=== PATIENT | male | born 1960 | race Caucasian/White ===

== ENCOUNTER 2021-08-25 19:56 | Emergency (ER) | payer BC, SELFPAY ==
[2021-08-25] VITALS (15 sets, daily range): BP systolic 151–190; BP diastolic 77–100; PULSE 75–86; RESP 20–220; TEMP 36.8; O2SAT 95–99
--- NOTE | ~2021-08-25 | CT_ITS ---
EXAMINATION: CT abdomen pelvis w con INDICATION: Left lower quadrant pain TECHNIQUE: Computed tomographic images of the abdomen and pelvis were obtained after the administrati on of 100 cc of Omnipaque 350 intravenous contrast. The dose-length product (DLP) was 1566.86 mGy-cm. Automated exposure control and iterative reconstruction technique were employed. COMPARISON: 02/22/2012 FINDINGS: Minimal dependent atelectasis is present in the lung bases. The heart size is normal. The l iver, spleen, pancreas, gallbladder, and adrenal glands are normal. There is a 3 mm stone in the dist al left ureter near the ureterovesicular junction. There are peripelvic cysts of the kidneys. There i s a 3 mm nonobstructing stone of the right kidney. No pathologically enlarged abdominal or pelvic lym ph nodes are identified. There is no free intraperitoneal gas or evidence of bowel obstruction. Colon ic diverticulosis is present without evidence of diverticulitis. There are fat-containing umbilical a nd right inguinal hernias. There is moderate lumbar spondylosis. IMPRESSION: 1. 3 mm stone in the distal left ureter near the ureterovesicular junction. 2. Bilateral nephrolithiasis. Reviewed, dictated and finalized at location F.
[2021-08-25] MEDS: MORPHINE SULFATE (*CRX) 4 MG/ML INJ IV PUSH (20:29)
[2021-08-25] MEDS: SODIUM CHLORIDE 0.9% IV 1,000 ML 999 ML IV CONT (20:29)
[2021-08-25 20:34] LABS: Basophils Percent Auto 0.3 % (0.2-1.2); Eosinophils Absolute Auto 0.1 K/mm3 (0-0.3); Eosinophils Percent Auto 1.1 % (0-4.4); Hematocrit 45.1 % (42.0-52.0); Hemoglobin 14.8 g/dL (14.0-18.0); Immature Granulocyte Absolute 0.05 K/mm3 (0.00-0.031); Immature Granulocyte Percent A 0.4 % (0-0.5); Lymphocytes Percent Auto 18.7 % (18.3-44.2); Mean Corpuscular HGB Conc 32.8 g/dl (32-36); Mean Corpuscular Hemoglobin 29.4 pg (26-34); Mean Corpuscular Volume 89.5 fl (80-100); Mean Platelet Volume 9.2 fl (7.4-10.4); Monocytes Absolute Auto 0.8 K/mm3 (0.1-0.6); Monocytes Percent Auto 6.5 % (2.6-8.5); Neutrophils Absolute Auto 9.4 K/mm3 (1.3-6.7); Platelet Count Result 323 k/mm3 (150-375); Red Blood Count 5.04 M/mm3 (4.6-6.20); Red Cell Distribution Width 13.9 % (11.5-14.5); White Blood Count 12.9 K/mm3 (4.5-10.0)
[2021-08-25 20:39] LABS: Add Urine Microscopic? YES; Appearance Urine Clear (Clear); Bilirubin Urine Negative (Negative); Blood Urine 3+ (Negative); Color Urine Yellow (Yellow); Glucose Urine UA Negative (Negative); Ketones Urine Negative (Negative); Leukocyte Esterase Ur Negative LEU/UL (Negative); Mucus Urine Rare /lpf; Nitrate Urine Negative (Negative); Protein Urine Negative (Negative); RBC Urine 21-50 /hpf (0-2); Specific Grav Ur 1.016 (1.001-1.035); Squamous Epithelial Cell Urine Rare /hpf (Few); Urobilinogen Urine Negative mg/dL (<2.0); WBC Urine 0-3 /hpf
[2021-08-25 20:44] LABS: Anion Gap 6 mmol/L (8-16); Blood Urea Nitrogen 18 mg/dL (9-20); Carbon Dioxide 30 mmol/L (22-30); Chloride 101 mmol/L (98-107); Estimated CRCL calculation 136 ml/min; Estimated Glomerular Filt Rate > 60; Glucose 115 mg/dL (65-110); Potassium 3.7 mmol/L (3.4-5.0); Sodium 137 mmol/L (137-145)
--- NOTE | 2021-08-25 20:52 | ED.ABDPAIN ---
HPI - Abdominal Pain General Chief Complaint: Abdominal Pain Stated Complaint: Abd pain Time Seen by Provider: 08/25/21 20:09 History of Present Illness HPI narrative: Patient is a 60-year-old male who presents ER with left lower quadrant abdominal pain. Sudden onset this morning. Persisted throughout today. Has waves of pain and has cramping that makes him feel like he needs to use restroom. He had 1 episode of diarrhea but has not been able to go to the bathroom since then. No fevers chills or sweats. No known sick contacts. No alleviating factors. Related Data Allergies Allergy/AdvReac Type Severity Reaction Status Date / Time levofloxacin Allergy Intermediate unk Verified 02/28/21 10:48 albuterol Allergy Unknown Unknown Verified 02/28/21 10:48 phenylephrine Allergy Unknown Unknown Verified 02/28/21 10:48 Review of Systems Review of Systems: All systems reviewed & are unremarkable except as noted in HPI and below Constitutional: Constitutional: Denies chills, Denies fever(s) and Denies weakness ENT: Denies nasal congestion and Denies sore throat Cardiovascular: Cardiovascular: Denies chest pain, Denies rapid heart rate and Denies radiating jaw, neck or arm pain Gastrointestinal: Gastrointestinal: Reports abdominal pain, Reports diarrhea, Reports nausea and Denies vomiting Genitourinary: Genitourinary: Denies hematuria, Denies dysuria and Denies urinary frequency PMFSH Past Medical History Medical History (Updated 08/25/21 @ 21:43 by Kyle Dillard MD) Anxiety and depression Elevated glucose Essential hypertension Morbid (severe) obesity due to excess calories Surgical History Surgical History (Updated 08/25/21 @ 20:54 by Kyle Dillard MD) History of tonsillectomy Family History Family History Grandparent Hypertension Family history of heart disease in male family member before age 55 Mother Hypotension Father Pacemaker Sibling COVID-19 Sibling , Agent [place] Social History Social History Second hand tobacco smoke exposure: No Alcohol intake: current Substance use: never Substance use type: does not use 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 HEAD: Normocephalic, atraumatic. CHEST: Clear to auscultation. No respiratory distress. HEART: Regular rate and rhythm. Normal peripheral pulses. ABDOMEN: Soft, nontender, nondistended. EXTREMITIES: Normal range of motion. No edema. SKIN: Warm, dry, no rash. NEURO: Alert and oriented x3. PSYCH: Normal mood and affect. Course Course Emergency Course: Patient informed of results. Pain improving. Eventually discharged home on supportive Vital Signs Vital signs: Vital Signs Temperature 98.2 F 08/25/21 20:00 Pulse Rate 86 08/25/21 20:00 Respiratory Rate 220 H 08/25/21 20:00 Blood Pressure 190/100 H 08/25/21 20:00 Pulse Oximetry 98 08/25/21 20:00 Temperature 98.2 F 08/25/21 20:00 Pulse Rate 75 08/25/21 20:46 Respiratory Rate 20 08/25/21 20:46 Blood Pressure 165/80 H 08/25/21 21:31 Pulse Oximetry 95 08/25/21 21:31 MDM - Abdominal Pain Lab Data Result diagrams: 08/25/21 20:27 08/25/21 20:27 Labs: Lab Results 08/25/21 08/25/21 08/25/21 Range/Units 20:27 20:27 20:27 WBC 12.9 H (4.5-10.0) K/mm3 RBC 5.04 (4.6-6.20) M/mm3 Hgb 14.8 (14.0-18.0) g/dL Hct 45.1 (42.0-52.0) % MCV 89.5 (80-100) fl MCH 29.4 (26-34) pg MCHC 32.8 (32-36) g/dl RDW 13.9 (11.5-14.5) % Plt Count 323 (150-375) k/mm3 MPV 9.2 (7.4-10.4) fl Immature Gran % (Auto) 0.4 (0-0.5) % Neut % (Auto) 73.0 (
[2021-08-25] MEDS: KETOROLAC 30 MG/ML VIAL (*BKC) IV PUSH (21:35)
== END 2021-08-25 22:05 | disposition home or self-care (01) ==
PROVIDERS: Emergency Provider Emergency Medicine; PCP Family Medicine
DX: N20.2 Calculus of kidney with calculus of ureter (principal); I10 Essential (primary) hypertension; E66.01 Morbid (severe) obesity due to excess calories; Z68.43 Body mass index [BMI] 50.0-59.9, adult
CPT/HCPCS: 36415; 74177; 80048; 81001; 85025; 96361; 96374; 96375; 99284; J1885; J2270; J7030; Q9967

== ENCOUNTER 2023-04-27 11:01 | Outpatient (CLI) | payer OTHER, SELFPAY ==
--- NOTE | ~2023-04-27 | XR_ITS ---
EXAMINATION: XR chest 2V DATE: 04/27/2023 11:16 INDICATION: Subacute cough TECHNIQUE: PA and lateral views of the chest are obtained. COMPARISON: 01/07/2019 FINDINGS: There are mild diffuse interstitial and airspace opacities. No pleural effusion or pneumoth orax. The cardiomediastinal silhouette is normal. There is mild thoracic spondylosis. IMPRESSION: 1. Diffuse lung disease, consistent with pneumonia and/or pulmonary edema. Reviewed, dictated and finalized at location B. RIOR COURT JUSTICE
--- NOTE | 2023-04-27 11:03 | ECG_ITS ---
Measurements Intervals [place] Rate: 80 P: 55 [place]: 190 QRS: -9 QRSD: 97 T: 52 QT: 369 QTc: 426 Interpretive Statements SINUS RHYTHM LEFT VENTRICULAR HYPERTROPHY AND ST-T CHANGE [VOLTAGE CRITERIA PLUS ST/T ABNORMALITY] INFERIOR MYOCARDIAL INFARCTION , PROBABLY OLD [40+ ms Q WAVE AND/OR ST/T ABNORMALITY IN II/aVF] COMPARED TO ECG 01/07/2019 19:58:02 SINUS RHYTHM NOW PRESENT Electronically Signed On 04-27-2023 16:38:27 DAIRY ASSOCIATE by Janes Bhatt M.D.
== END 2023-04-27 11:02 | disposition home or self-care (01) ==
LOC: ANHIMG 11:03
PROVIDERS: PCP Family Medicine; Visit Provider Physician Assistant
DX: R07.89 Other chest pain (principal); R05.2 Subacute cough; R94.31 Abnormal electrocardiogram [ECG] [EKG]
CPT/HCPCS: 71046; 93005

== ENCOUNTER 2023-05-10 18:50 | Observation (INO) | payer OTHER, SELFPAY ==
--- NOTE | ~2023-05-10 | XR_ITS ---
EXAMINATION: XR chest 2V DATE: 05/10/2023 19:42 INDICATION: Cough and left-sided rib pain TECHNIQUE: PA and lateral views of the chest were obtained. COMPARISON: Chest radiograph dated 04/27/2023 FINDINGS: There is mild bronchial wall thickening in the right perihilar region. No focal airspace opacities, p leural effusion or pneumothorax. Heart size is normal. Tortuous thoracic aorta. Moderate thoracic spo ndylosis. IMPRESSION: 1. Mild right perihilar bronchial wall thickening consistent with bronchitis without focal airspace o pacities to suggest pneumonia Reviewed, dictated and finalized at location A. ASOUND TECHNOLOGIST IMPRESSION: 1. Mild right perihilar bronchial wall thickening consistent with bronchitis wi thout focal airspace opacities to suggest pneumonia
--- NOTE | ~2023-05-10 | XR_ITS ---
EXAMINATION: XR lumbar spine 2-3V DATE: 05/10/2023 21:45 INDICATION: Chronic back pain TECHNIQUE: Anteroposterior and lateral views of the lumbar spine, and cone-down lateral view of the l umbosacral junction were obtained. COMPARISON: CT abdomen and pelvis dated 08/25/2021 FINDINGS: 3 mm anterolisthesis L4 on L5. Unchanged mild posterior subluxation at the sacrococcygeal junction. C hronic mild anterior wedging at T12 and L1. Mild disc height loss at L1-L2, L3-L4 and L4-L5. Severe b ilateral facet osteoarthritis at L4-L5. Additional polyarticular osteoarthritis, mild at the right hi p and sacroiliac joint and mild to moderate at the left hip and sacroiliac joint. IMPRESSION: 1. Mild lumbar spondylosis. Reviewed, dictated and finalized at location A. TATION DIRECTOR IMPRESSION: 1. Mild lumbar spondylosis.
[2023-05-10 19:00] VITALS: BP 153/84; PULSE 76; RESP 16; TEMP 36.7; O2SAT 99
[2023-05-10 21:18] LABS: Influenza A QL RT-PCR Negative (Negative); Influenza B QL RT-PCR Negative (Negative); RSV RNA, RT-PCR Negative (Negative); SARS-CoV-2 RNA PCR Negative (Negative)
[2023-05-11] VITALS (10 sets, daily range): BP systolic 130–165; BP diastolic 82–100; PULSE 66–92; RESP 15–16; TEMP 36.5; O2SAT 94–100; BMI 53.3
--- NOTE | 2023-05-11 | ECG_ITS ---
Measurements Intervals [place] Rate: 78 P: 46 [place]: 192 QRS: -3 QRSD: 98 T: 64 QT: 388 QTc: 444 Interpretive Statements SINUS RHYTHM INTRAVENTRICULAR CONDUCTION DELAY LEFT VENTRICULAR HYPERTROPHY AND ST-T CHANGE BORDERLINE ST-T WAVE ABNORMALITY- ANTEROLATERAL LEADS BORDERLINE ECG BASELINE ARTIFACT- I, III, AVR, AVL, AVF, V2-V6 COMPARED TO ECG 04/27/2023 11:52:56 NO SIGNIFICANT CHANGES Electronically Signed On 05-11-2023 6:39:44 JEWEL HOLE CORNERER by Uriel Adams D.O.
--- NOTE | 2023-05-11 00:02 | ED.CHESTPAIN ---
HPI - Chest Pain General Chief Complaint: Back Pain/Injury Stated Complaint: back pain Time Seen by Provider: 05/10/23 23:50 Source: patient Mode of arrival: ambulatory Limitations: no limitations History of Present Illness HPI narrative: This is a 62 year old male that presents to the ER for left sided chest pain. Reports it is dull/achy in nature. No known alleviating or exacerbating factors. Started this afternoon. Has been constant since. Reports he was recently treated for pneumonia. Reports some shortness of breath. Denies fever, or lower extremity edema. Related Data Allergies Allergy/AdvReac Type Severity Reaction Status Date / Time levofloxacin Allergy Intermediate unk Verified 05/10/23 18:51 albuterol Allergy Unknown Unknown Verified 05/10/23 18:51 phenylephrine Allergy Unknown Unknown Verified 05/10/23 18:51 Review of Systems Review of Systems: CONSTITUTIONAL: Denies fever CARDIOVASCULAR: Reports chest pain. Denies edema. RESPIRATORY: Reports dyspnea. All systems reviewed & are unremarkable except as noted in HPI and below PMFSH Past Medical History Medical History Anxiety and depression BMI 50.0-59.9, adult COVID-19 Elevated glucose Essential hypertension Morbid (severe) obesity due to excess calories Surgical History Surgical History History of tonsillectomy Family History Family History Grandparent Hypertension Family history of heart disease in male family member before age 55 Mother Hypotension Father Pacemaker Sibling COVID-19 Sibling , Agent [place] Social History Social History Smoking status: Never smoker Second hand tobacco smoke exposure: Yes Alcohol intake: current Substance use: never Substance use type: does not use Lack of Transportation: No Lack of Food: Never True Current Housing: I Have Housing Concerned About Future Housing: No Difficulty Paying Gas/Electric Bills: No Difficulty Paying for Meds: No Currently Unemployed: No Education: Master's Degree or Higher Difficulty w/ Childcare or Family Care: No Living arrangements: alone Occupation/Education: occupation 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 HEAD: Normocephalic, atraumatic. EYES: EOMI. NECK: No JVD CHEST: Clear to auscultation. No respiratory distress. No wheezes rales or rhonchi HEART: Regular rate and rhythm. No murmur heard. Normal peripheral pulses. EXTREMITIES: Normal range of motion. No edema. SKIN: Warm, dry, no rash. NEURO: No focal deficits. Alert and oriented x3. PSYCH: Normal mood and affect Course Course Emergency Course: Patient updated on his workup and recommendation for admission Consultations Consultation #1: Spoke with hospitalist about patient and workup who accepts admission Date: 05/11/23 Vital Signs Vital signs: Vital Signs Temperature 98.1 F 05/10/23 19:00 Pulse Rate 76 05/10/23 19:00 Respiratory Rate 16 05/10/23 19:00 Blood Pressure 153/84 H 05/10/23 19:00 Pulse Oximetry 99 05/10/23 19:00 Oxygen Delivery Room Air 05/10/23 19:00 Temperature 98.1 F 05/10/23 19:00 Pulse Rate 71 05/11/23 00:42 Respiratory Rate 16 05/11/23 00:42 Blood Pressure 146/82 H 05/11/23 00:42 Pulse Oximetry 100 05/11/23 00:42 Oxygen Delivery Room Air 05/10/23 19:00 MDM - Chest Pain MDM Narrative Medical decision making narrative: Patient presents to the emergency department for an episode of chest pain this afternoon. His vitals are stable. Pain was relieved with a dose of morph
[2023-05-11] MEDS: ASPIRIN 81 MG CHEWABLE TABLET 324 MG PO (00:09)
[2023-05-11] MEDS: MORPHINE SULFATE (*CRX) 4 MG/ML INJ IV PUSH (00:13)
[2023-05-11] MEDS: ONDANSETRON INJ 4 MG/2 ML VIAL IV PUSH (00:14)
[2023-05-11 00:41] LABS: D Dimer 0.37 ug/mL (<0.48)
[2023-05-11 00:42] LABS: Basophils Percent Auto 0.3 % (0.2-1.2); Eosinophils Absolute Auto 0.2 K/mm3 (0-0.3); Eosinophils Percent Auto 1.4 % (0-4.4); Hematocrit 43.8 % (42.0-52.0); Hemoglobin 14.3 g/dL (14.0-18.0); Immature Granulocyte Absolute 0.04 K/mm3 (0.00-0.031); Immature Granulocyte Percent A 0.3 % (0-0.5); Lymphocytes Absolute Auto 3.33 K/mm3 (0.9-3.2); Lymphocytes Percent Auto 28.7 % (18.3-44.2); Mean Corpuscular HGB Conc 32.6 g/dl (32-36); Mean Corpuscular Hemoglobin 29.7 pg (26-34); Mean Corpuscular Volume 90.9 fl (80-100); Mean Platelet Volume 9.8 fl (7.4-10.4); Monocytes Absolute Auto 0.7 K/mm3 (0.1-0.6); Monocytes Percent Auto 6.2 % (2.6-8.5); Neutrophils Absolute Auto 7.3 K/mm3 (1.3-6.7); Neutrophils Percent Auto 63.1 % (45.5-73.1); Platelet Count Result 320 k/mm3 (150-375); Red Blood Count 4.82 M/mm3 (4.6-6.20); Red Cell Distribution Width 13.9 % (11.5-14.5); White Blood Count 11.6 K/mm3 (4.5-10.0)
[2023-05-11 00:47] LABS: Partial Thromboplastin Time 31.8 SECONDS (22.3-36.8); Prothrombin Time 13.5 Seconds (11.1-14.7)
[2023-05-11 00:51] LABS: Alanine Aminotransferase 29 U/L (6-50); Albumin Level 3.9 g/dL (3.5-5.1); Alkaline Phosphatase 55 U/L (38-126); Anion Gap 7 mmol/L (8-16); Aspartate Amino Transferase 32 U/L (17-59); Bilirubin,Total 1.1 mg/dL (0.2-1.3); Blood Urea Nitrogen 13 mg/dL (9-20); Calcium 8.9 mg/dL (8.4-10.2); Carbon Dioxide 30 mmol/L (22-30); Chloride 101 mmol/L (98-107); Estimated CRCL calculation 173 ml/min; Estimated Glomerular Filt Rate > 60; Glucose 97 mg/dL (65-110); Lipase 54 U/L (23-300); Potassium 3.4 mmol/L (3.4-5.0); Sodium 138 mmol/L (137-145)
[2023-05-11 01:03] LABS: Troponin I 0.028 ng/mL (0.000-0.034)
--- NOTE | 2023-05-11 02:50 | PM.IMHP ---
H&P: HPI History of Present Illness Date/Time: 05/11/23 02:50 Chief Complaint: Chest pain Narrative: This is a 62-year-old male with past medical history significant for morbid obesity, hypertension, anxiety and depression. Patient presents to the emergency room due to left-sided chest pain nonradiating a caring on and off for the last 2 weeks or so patient has been having upper respiratory symptoms since early March has had productive cough, has completed 2 courses of Z-Arturo and Solu pack in the outpatient setting but is still having persist cough. Patient denies any nausea, vomiting, palpitations, lightheadedness, no fevers, no rigors, no chills. Preliminary workup has been significant for chest x-ray with infiltrate. Patient tested negative for influenza type A influenza type B COVID and RSV. EXAMINATION: XR chest 2V DATE: 05/10/2023 19:42 INDICATION: Cough and left-sided rib pain TECHNIQUE: PA and lateral views of the chest were obtained. COMPARISON: Chest radiograph dated 04/27/2023 FINDINGS: There is mild bronchial wall thickening in the right perihilar region. No focal airspace opacities, pleural effusion or pneumothorax. Heart size is normal. Tortuous thoracic aorta. Moderate thoracic spondylosis. IMPRESSION: 1. Mild right perihilar bronchial wall thickening consistent with bronchitis without focal airspace opacities to suggest pneumonia Review of Systems Review of Systems: Chest pain, productive cough. Constitutional: Constitutional: Denies chills, Denies fatigue, Denies fever(s), Denies malaise, Denies night sweats and Denies poor appetite Eyes: Eyes: Denies change in vision ENT: Denies dysphagia and Denies odynophagia Cardiovascular: Cardiovascular: Reports chest pain, Denies syncope, Denies rapid heart rate, Reports pedal edema, Denies lightheadedness, Denies radiating jaw, neck or arm pain, Denies palpitations and Reports dyspnea Respiratory: Respiratory: Reports cough, Reports excessive phlegm production and Denies pain on inspiration Gastrointestinal: Gastrointestinal: Denies abdominal pain, Denies dyspepsia, Denies heartburn, Denies diarrhea, Denies nausea and Denies vomiting Genitourinary: Genitourinary: Denies dysuria Musculoskeletal: Musculoskeletal: Denies arthralgias Integumentary/Breasts: Skin/Breast: Denies rash Neurologic: Denies focal weakness and Denies Sensory deficit (Neuro) Psychiatric: Psychiatric: Reports no additional psychiatric complaints and Reports as per HPI Endocrine: Endocrine: Denies cold intolerance, Denies fatigue, Denies flushing, Denies heat intolerance, Denies polyphagia, Denies polydipsia and Denies palpitations Hematologic/Lymphatic: Hematologic/Lymphatic: Reports no additional hematologic/lymphatic complaints and Reports as per HPI Allergic/Immunologic: Allergic/Immunologic: Reports no additional allergic/immunologic complaints and Reports as per HPI PMFSH Past Medical History Medical History Anxiety and depression BMI 50.0-59.9, adult COVID-19 Elevated glucose Essential hypertension Morbid (severe) obesity due to excess calories Surgical History Surgical History History of tonsillectomy Family History Family History Grandparent Hypertension Family history of heart disease in male family member before age 55 Mother Hypotension Father Pacemaker Sibling COVID-19 Sibling , Agent [place] Social History Social History Smoking status: Never smoker Second hand tobacco smoke exposure: Yes Alcohol intake: current Substance use: never Substance use type: does not use Lack of Transportation: No Lack of Food: Never True Current Housing: I Have Ho
--- NOTE | 2023-05-11 03:47 | ECG_ITS ---
Measurements Intervals [place] Rate: 70 P: 45 [place]: 196 QRS: -7 QRSD: 114 T: 85 QT: 430 QTc: 466 Interpretive Statements SINUS RHYTHM VENTRICULAR PREMATURE COMPLEX INTRAVENTRICULAR CONDUCTION DELAY LEFT VENTRICULAR HYPERTROPHY AND ST-T CHANGE CONSIDER INFERIOR INFARCT, AGE INDETERMINATE BORDERLINE ST-T WAVE ABNORMALITY- ANTEROLATERAL LEADS BASELINE ARTIFACT- I, III, AVR, AVL, AVF ABNORMAL ECG COMPARED TO ECG 05/11/2023 00:14:34 NO SIGNIFICANT CHANGES Electronically Signed On 05-11-2023 6:45:52 TRANSFER IRON OPERATOR by Uriel Adams D.O.
[2023-05-11 04:14] LABS: Troponin I 0.028 ng/mL (0.000-0.034)
--- NOTE | 2023-05-11 05:56 | ECG_ITS ---
Measurements Intervals [place] Rate: 71 P: 37 [place]: 204 QRS: -10 QRSD: 100 T: 52 QT: 390 QTc: 425 Interpretive Statements SINUS RHYTHM VENTRICULAR PREMATURE COMPLEX LEFT VENTRICULAR HYPERTROPHY AND ST-T CHANGE CONSIDER INFERIOR INFARCT, AGE INDETERMINATE BORDERLINE ST-T WAVE ABNORMALITY- ANTEROLATERAL LEADS BASELINE ARTIFACT- I, III, AVR, AVL, AVF ABNORMAL ECG COMPARED TO ECG 05/11/2023 03:53:32 NO SIGNIFICANT CHANGES Electronically Signed On 05-11-2023 6:49:18 BAIT MAN by Uriel Adams D.O.
[2023-05-11 06:20] LABS: Troponin I 0.024 ng/mL (0.000-0.034)
[2023-05-11] MEDS: cefTRIAXone 2 GM/NS 100 ML 2 GM/100 ML BAG IVPB (06:24)
[2023-05-11] MEDS: AZITHROMYCIN 500 MG/NS 250 ML 500 MG/250 ML BAG 250 MG IVPB (06:47)
--- NOTE | 2023-05-11 09:34 | ADMGEN ---
This patient, Jose Zuñiga, was admitted to Intensive Care Unit-4 at 0903. Patient/family oriented to hospital policies and general routines including ID bracelet, bed and alarms, visiting hours, pain management, procedures, bathroom and other care routines, personal items, smoking policy, room service/diet, and visiting hours. Information on how to activate the Rapid Response Team has been discussed. Patient/Family are encouraged to report perceived risks to care and to ask questions if they do not understand what they are told or what they should do.
--- NOTE | 2023-05-11 09:35 | ADMGEN ---
This patient, Jose Zuñiga, was admitted to Intensive Care Unit-4. Patient/family oriented to hospital policies and general routines including ID bracelet, bed and alarms, visiting hours, pain management, procedures, bathroom and other care routines, personal items, smoking policy, room service/diet, and visiting hours. Information on how to activate the Rapid Response Team has been discussed. Patient/Family are encouraged to report perceived risks to care and to ask questions if they do not understand what they are told or what they should do.
--- NOTE | 2023-05-11 09:43 | PM.CNCAR ---
Assessment and Plan Assessment and plan (1) Chest pain: Qualifiers: Chest pain type: unspecified Qualified Code(s): R07.9 - Chest pain, unspecified Code(s): R07.9 - Chest pain, unspecified Status: Acute Assessment and Plan: Atypical chest pain. He has been ruled out for ACS with three negative troponin levels and EKG with no ischemic changes. Most likely musculoskeletal in etiology. No recommendation for any further cardiac testing at this time. OK for discharge from the hospital from a cardiac perspective. (2) Acute bronchitis: Qualifiers: Bronchitis organism: unspecified organism Qualified Code(s): J20.9 - Acute bronchitis, unspecified Code(s): J20.9 - Acute bronchitis, unspecified Status: Acute Assessment and Plan: Continue abx, steroids, and inhaler per hospitalist (3) Morbid (severe) obesity due to excess calories: Code(s): E66.01 - Morbid (severe) obesity due to excess calories Status: Acute Assessment and Plan: Weight loss recommended History of Present Illness History of Present Illness Consult date/time: 05/11/23 09:43 Requesting physician: Savage Page MD Consult reason: chest pain Reason For Visit: Chest Pain Narrative: Cristian Zuñiga is a 62-year-old male with morbid obesity and hypertension. He presents to the hospital with a chief complaint of chest pain. He has been experiencing upper respiratory symptoms for a few weeks. He has had some left sided chest pain associated with this. He states the pain has been constant and mild, located on his left lateral chest wall. Because of ongoing pain, he made the decision to come to the hospital for evaluation. Workup has been significant for CXR showing perihilar bronchial wall thickening consistent with bronchitis. Cardiology is being asked to evaluate his chest pain. Currently, he is lying comfortably in bed with ongoing mild left sided chest pain. He does not have any other complaints. Review of Systems Review of Systems: All systems reviewed & are unremarkable except as noted in HPI and below PMFSH Past Medical History Medical History Anxiety and depression BMI 50.0-59.9, adult COVID-19 Elevated glucose Essential hypertension Morbid (severe) obesity due to excess calories Surgical History Surgical History History of tonsillectomy Family History Family History Grandparent Family history of heart disease in male family member before age 55 Hypertension Mother History of blood clots Hypotension Father Pacemaker Sibling COVID-19 History of blood clots Diabetes mellitus Sibling , Agent [place] Social History Social History Smoking status: Never smoker Second hand tobacco smoke exposure: Yes Alcohol intake: current Drinks per week: 2 Substance use: never Substance use type: does not use Do You Feel Safe in your Home?: Yes Lack of Transportation: No Lack of Food: Never True Current Housing: I Have Housing Concerned About Future Housing: No Difficulty Paying Gas/Electric Bills: No Difficulty Paying for Meds: No Currently Unemployed: No Education: Master's Degree or Higher Difficulty w/ Childcare or Family Care: No Living arrangements: alone Occupation/Education: occupation 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
[2023-05-11] MEDS: IPRATROPIUM 0.5 MG/ALBUTEROL SULFATE 2.5 MG AMPUL.NEB 3 ML INHALATION (10:02)
--- NOTE | 2023-05-11 10:52 | PM.DS ---
DS: Admitting Diagnosis Discharge Date 05/11/2023 Admitting Diagnosis Chest Pain Bronchitis Cough DS: Discharge Diagnosis Discharge Diagnosis (1) Chest pain: Qualifiers: Chest pain type: unspecified Qualified Code(s): R07.9 - Chest pain, unspecified Code(s): R07.9 - Chest pain, unspecified Status: Acute Assessment and Plan: Pt with three negative Troponins Stable VS ACS is ruled out. Cardiology consulted and they plan no further intervention or testing. Pt is stable for discharge from their standpoint. EKG without ischemic changes and telemetry is normal. Suspect Chest pain was most likely due to musculoskeletal strain. Keep upcoming appointment with Dr. Adams next week in Cardiology. (2) Acute bronchitis: Qualifiers: Bronchitis organism: unspecified organism Qualified Code(s): J20.9 - Acute bronchitis, unspecified Code(s): J20.9 - Acute bronchitis, unspecified Status: Acute Assessment and Plan: CXR performed in ER does not identify any acute PNA. There is mild right perihilar bronchial wall thickening that is consistent with Bronchitis. Pt was started on Azithromycin and Rocephin in ER. He has had two rounds of Azithromycin previously without any change in overall condition. Suspect this is mostly viral in nature, as there is no left shift on CBC COVID, Flu and RSV are negative. Pt without meeting SIRS/Sepsis criteria. He is stable for discharge to home. Will continue abx with Augmentin, although I am not altogether convinced that this is Bacterial and will also provide a steroid taper and symptomatic managment. Encouraged to continue inhaler at home Follow up with PCP. Plan Discharge to home DS: Summary Hospital Course Reason for hospitalization: Chest Pain Hospital Course: This 62 year old male pt with Hx of Obesity, HTN, Anxiety, and Depression presented to the ER last evening with C/O chest pain that pt reports to me is left sided and radiates to the side. It is made worse by deep inspiration and coughing. He has no symptoms of N/V/Diaphoresis. He was diagnosed with PNA at the end of March and has completed two courses of abx and some steroids as well. He has not gotten any better. He uses his Albuterol inhaler at home with some improvement in his overall condition. He was admitted to the hospital for a rule out of ACS and Cardiology was consulted. He has had three negative troponins and Cardiology has no further recommendations for testing at this time. He has an appointment coming up with Dr. Adams coming up. Pt is stable for discharge at this time. He will be discharged with continued treatment for Bronchitis and advisement for follow up. He is agreeable to this POC and verbalizes understanding. All questions answered to his satisfaction prior to discharge. Status at Discharge Cognitive/behavioral status at discharge: At Baseline Functional status at discharge: independent ambulation Overall status at discharge: patient is back to baseline Time Spent with Patient Time attestation: Total time spent providing and/or coordinating discharge services: Time spent: Greater than 30 minutes Specific discharge activities: Discharge activities and follow up Exam Const: General: comfortable and no acute distress Other: Morbidly obese lying supine in bed HENMT: Other: Grossly normal without any s/s of trauma. Normocephalic. Patent airway. Eyes: General: appearance normal, both eyes and all related structures Neck: Neck: supple Resp: Effort & Inspection: normal respiratory effort Auscultation: wheezes (Few scattered inspiratory) Cardio: Rate: regular rate Rhythm: regular rhythm Heart sounds: no gallops, no murmurs and no rubs GI: Inspection: non-distended GI Palp: Yes Soft to palpation Auscultation: normal bowel sounds Skin: General skin exam: normal color and no rashes or lesions noted Neuro: General: gait normal
== END 2023-05-11 12:00 | disposition home or self-care (01) ==
LOC: ANHED 05-11 02:54 → ANHIMU 05-11 06:33 → ANHICU 05-11 11:19 → ANHIMU 05-14 10:01 → ANHICU 05-14 10:02
PROVIDERS: Student in an Organized Health Care Education/Training Program; Admitting Provider Internal Medicine; Emergency Provider Physician Assistant; PCP Family Medicine; Visit Provider Nurse Practitioner Adult Health
DX: J20.9 Acute bronchitis, unspecified (principal); R07.9 Chest pain, unspecified; F41.9 Anxiety disorder, unspecified; F32.A Depression, unspecified; I11.9 Hypertensive heart disease without heart failure; I45.4 Nonspecific intraventricular block; Z20.822 Contact with and (suspected) exposure to COVID-19; R94.31 Abnormal electrocardiogram [ECG] [EKG]; Z86.16 Personal history of COVID-19; G47.33 Obstructive sleep apnea (adult) (pediatric); Z99.89 Dependence on other enabling machines and devices; M47.816 Spondylosis without myelopathy or radiculopathy, lumbar region; Z68.43 Body mass index [BMI] 50.0-59.9, adult; E66.01 Morbid (severe) obesity due to excess calories; F10.90 Alcohol use, unspecified, uncomplicated; Z79.51 Long term (current) use of inhaled steroids; Z82.49 Family history of ischemic heart disease and other diseases of the circulatory system
CPT/HCPCS: 36415; 71046; 72100; 80053; 83690; 84484; 85025; 85380; 85610; 85730; 87040; 87077; 87637; 93005; 94640; 96365; 96366; 96367; 96375; 99285; A9270; G0378; J0456; J0696; J2270; J2405

== ENCOUNTER 2023-10-21 15:56 | Emergency (ER) | payer OTHER, SELFPAY ==
[2023-10-21 16:04] VITALS: BP 148/81; PULSE 72; RESP 18; TEMP 36.6; O2SAT 99
--- NOTE | 2023-10-21 16:11 | ED.GENADULT ---
HPI - General Adult General Chief complaint: Upper Respiratory Infection Stated complaint: sob and wheezing Time Seen by Provider: 10/21/23 16:12 Source: patient Mode of arrival: ambulatory Limitations: no limitations History of Present Illness HPI narrative: 63-year-old male patient presents to the [facility] with complaints of a cough that started yesterday. Patient states he was having a lot of trouble sleeping last night and had a cough. Denies fevers, body aches or chills denies any chest pain. Patient states he is getting ready to start a new job tomorrow and has been feeling very anxious. Patient states he has been taking Mucinex for his cough. Patient states back in March he did have pneumonia. Related Data Home Medications Medication Instructions Recorded Confirmed losartan 100 mg tablet 100 mg PO QAM 05/11/23 10/21/23 Allergies Allergy/AdvReac Type Severity Reaction Status Date / Time albuterol AdvReac Mild Jittery Verified 10/21/23 16:12 levofloxacin AdvReac Mild Hives Verified 10/21/23 16:12 phenylephrine AdvReac Mild Hives Verified 10/21/23 16:12 Review of Systems Review of Systems: CONSTITUTIONAL: Denies fever, chills, or sweats. EYES: Denies visual changes, redness, or discharge. ENT: positive rhinorrhea, congestion, denies sore throat, or otalgia. CARDIOVASCULAR: Denies chest pain, palpitations, or edema. RESPIRATORY: Positive nonproductive cough, denies dyspnea. GASTROINTESTINAL: Denies abdominal pain, nausea, vomiting, or diarrhea. GENITOURINARY: Denies dysuria or hematuria. SKIN: Denies rash or itching. MUSCULOSKELETAL: Denies back pain, joint pain, or myalgia. NEUROLOGIC: Denies headache, numbness, or weakness. PSYCHIATRIC: Denies anxiety or depression. [facility] Past Medical History Medical History Anxiety and depression BMI 50.0-59.9, adult COVID-19 Elevated glucose Essential hypertension Morbid (severe) obesity due to excess calories Surgical History Surgical History History of tonsillectomy Family History Family History Grandparent Family history of heart disease in male family member before age 55 Hypertension Mother History of blood clots Hypotension Father Pacemaker Sibling COVID-19 History of blood clots Diabetes mellitus Sibling , Agent [place] Social History Social History Smoking status: Never smoker Second hand tobacco smoke exposure: Yes Alcohol intake: current Drinks per week: 2 Substance use: never Substance use type: does not use Do You Feel Safe in your Home?: Yes Lack of Transportation: No Lack of Food: Never True Current Housing: I Have Housing Concerned About Future Housing: No Difficulty Paying Gas/Electric Bills: No Difficulty Paying for Meds: No Currently Unemployed: No Education: Master's Degree or Higher Difficulty w/ Childcare or Family Care: No Living arrangements: alone Occupation/Education: occupation 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 There is no relevant family history pertinent to the presenting complaint. Exam Narrative: GENERAL: Well-appearing, well-nourished, and in no acute distress. Patient does appear fidgety and anxious. HEAD: Normocephalic, atraumatic. EYES: PERRLA and EOMI. ENT: Nares with erythema edema noted bilaterally, no rhinorrhea or epistaxis. Mucous membranes moist. posterior pharynx no erythema, tonsillar enlargement, exudates or lesions present. Small amount postnasal dri
== END 2023-10-21 16:26 | disposition home or self-care (01) ==
PROVIDERS: Emergency Provider Nurse Practitioner Family; PCP Family Medicine
DX: F41.9 Anxiety disorder, unspecified (principal); J30.2 Other seasonal allergic rhinitis; R05.1 Acute cough; I10 Essential (primary) hypertension; E66.01 Morbid (severe) obesity due to excess calories; Z68.43 Body mass index [BMI] 50.0-59.9, adult; Z86.16 Personal history of COVID-19
CPT/HCPCS: 99213; G0463

== ENCOUNTER 2024-03-13 12:42 | Outpatient (CLI) | payer BC, SELFPAY ==
--- NOTE | 2024-03-14 14:15 | WPDPFTINT ---
PFT Procedure Performed PFT Procedure Performed Spirometry with Pre/Post Bronchodilator Plethysmography (Lung Vol) Diffusing Cap (DLCO) Flow Vol Loop PFT Interpretation This is a pulmonary function test with pre and post-bronchodilator spirometry, plethysmography and diffusing capacity. The test was performed and results interpreted in accordance with the 2019 and 2005 ATS/ERS Task Force guidelines respectively using the Global Lung Function Initiative-2012 reference equations. Patient demonstrated good effort and cooperation. Reproducibility criteria were met. The quality of the pre bronchodilator spirometry maneuver was Grade A and post bronchodilator spirometry maneuver was Grade A. Findings: Spirometry: The contour the inspiratory and expiratory flow tracing are normal. The pre bronchodilator FVC is 3.07 L, 70% predicted. The pre bronchodilator FEV1 is 2.37 L, 70% predicted. The pre bronchodilator FEV1: FVC ratio 77%. The post bronchodilator FVC is 2.91 L, representing a 5% decrease. The post bronchodilator FEV1 is 2.38 L, representing no change. Her the post bronchodilator FEV1: FVC ratio is 82%. Plethysmography: The total lung capacity is 5.38 L, 79% predicted. The functional residual capacity is 2.63 L, 74% predicted. The residual volume is 2.18 L, 98% predicted. Diffusing capacity: The diffusing capacity unadjusted for hemoglobin and carboxyhemoglobin is 19.2, 70% predicted. The diffusing capacity adjusted for alveolar volume is 3.88, 92% predicted. Impression: The spirometry is normal without evidence of an obstructive abnormality. The lung volumes are normal without evidence of and restrictive abnormality. The FVC and FEV1 are mildly decreased without an obstructive or restrictive abnormality. This is an abnormal but nonspecific finding. There is no significant improvement after inhaling a single dose of albuterol. The diffusing capacity unadjusted for hemoglobin and carboxyhemoglobin is mildly decreased and normalizes when adjusted for alveolar volume. There are no prior studies for comparison
== END 2024-03-13 12:43 | disposition home or self-care (01) ==
PROVIDERS: PCP Family Medicine; Visit Provider Physician Assistant Medical
DX: R06.02 Shortness of breath (principal); R06.09 Other forms of dyspnea
CPT/HCPCS: 94060; 94726; 94729

== ENCOUNTER 2025-04-26 15:48 | Emergency (ER) | payer BC, SELFPAY ==
--- NOTE | ~2025-04-26 | XR_ITS ---
EXAMINATION: XR chest 2V DATE: 04/26/2025 18:03 INDICATION: Shortness of breath. TECHNIQUE: Frontal and lateral views of the chest were obtained. COMPARISON: Chest x-ray dated 05/10/2023 FINDINGS: Cardiomegaly and atherosclerotic aorta. Lungs do not show acute pulmonary findings. Prominent central pulmonary arteries suggest pulmonary hypertension. IMPRESSION: 1. No acute findings. Cardiomegaly, atherosclerotic aorta and evidence of pulmonary arterial hypertension. Reviewed, dictated and finalized at location [facility]. [facility] IMPRESSION: 1. No acute findings. Cardiomegaly, atherosclerotic aorta and evidence of pulmo nary arterial hypertension.
--- NOTE | 2025-04-26 15:55 | ECG_ITS ---
Test Date: 2025-04-26 17:39:23 Measurements Intervals [place] Rate: 84 P: 48 MD: 187 QRS: -7 QRSD: 117 T: 107 QT: 416 QTc: 493 Interpretive Statements SINUS RHYTHM WITH OCCASIONAL VENTRICULAR PREMATURE COMPLEXES POSSIBLE LEFT ATRIAL ENLARGEMENT INTRAVENTRICULAR CONDUCTION DELAY DELAYED PRECORDIAL R/S TRANSITION BORDERLINE ST-T WAVE ABNORMALITY- LAT/HIGH LAT LEADS BASELINE ARTIFACT- I, II, AVR, AVF, V4-V5 BORDERLINE ECG No previous ECG available for comparison Electronically Signed On 04-26-2025 20:23:17 [employer] by Uriel Adams D.O.
[2025-04-26 15:58] VITALS: BP 160/94; PULSE 96; RESP 24; TEMP 36.6; O2SAT 96
--- NOTE | 2025-04-26 17:48 | ED_ITS ---
HPI - General Adult General Chief complaint: Shortness of Breath/Dyspnea Stated complaint: unable to sleep, apneic while sleeping, SOB Time Seen by Provider: 04/26/25 17:09 History of Present Illness HPI narrative: Patient is a 64-year-old male who presents ER with difficulty sleeping. He has history of sleep apnea and uses a CPAP. He has spoken with his sleep medicine doctor and they performed adjustments without improvement. He has doubled his BuSpar dose twice in last couple months and he is wondering if that could be causing him have difficulty sleeping. He is also tried changing his Ambien which is not improved his sleep either. No fevers or chills or sweats. No chest pain or chest pressure. He is scheduled for sleep study in April. He would like to make sure there is not any additional organic issue that may be causing problems. Related Data Allergies Allergy/AdvReac Type Severity Reaction Status Date / Time albuterol AdvReac Mild Jittery Verified 04/26/25 17:36 levofloxacin AdvReac Mild Hives Verified 04/26/25 17:36 phenylephrine AdvReac Mild Hives Verified 04/26/25 17:36 Review of Systems 2 Review of Systems: All systems reviewed & are unremarkable except as noted in HPI and below Constitutional: Constitutional: Reports no additional constitutional complaints ENT: Reports system reviewed and no additional complaints, except as documented Cardiovascular: Cardiovascular: Reports no additional cardiovascular complaints Respiratory: Respiratory: Reports no additional respiratory complaints Gastrointestinal: Gastrointestinal: Reports no additional gastrointestinal complaints [facility] Past Medical History Medical History BMI 50.0-59.9, adult COVID-19 Elevated glucose Morbid (severe) obesity due to excess calories Anxiety and depression Essential hypertension Surgical History Surgical History History of tonsillectomy Family History Family History Grandparent Family history of heart disease in male family member before age 55 Hypertension Mother History of blood clots Hypotension Father Pacemaker Sibling COVID-19 History of blood clots Diabetes mellitus Sibling , Agent [place] Social History Social History Smoking status: Never smoker Second hand tobacco smoke exposure: Yes Alcohol intake: current Drinks per week: 2 Substance use: never Substance use type: does not use Lack of Transportation: No Lack of Food: Never True Current Housing: I Have Housing Concerned About Future Housing: No Difficulty Paying Gas/Electric Bills: No Difficulty Paying for Meds: No Currently Unemployed: No Education: Master's Degree or Higher Difficulty w/ Childcare or Family Care: No Living arrangements: alone Occupation/Education: occupation 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 HEAD: Normocephalic, atraumatic. EYES: PERRL and EOMI. ENT: Mucous membranes moist. CHEST: Clear to auscultation. No respiratory distress. HEART: Regular rate and rhythm. Normal peripheral pulses. EXTREMITIES: Normal range of motion. No edema. SKIN: Warm, dry, no rash. NEURO: Alert and oriented x3. PSYCH: Normal mood and affect. Course Course Emergency Course: Labs unremarkable. Informed of imaging results. Will give some Ativan for home but he is not to use it with his Ambien. Recommend continuing to get his sleep study. Vital Signs Vital signs: Vital Signs Temperature 97.9 F 04/26/25 15:58 Pulse Rate 96 04/26/25 15:58 Respiratory Rate 24 H 04/26/25 15:58 Blood Pressure 160/94 H 04/26/25 15:58 Pulse Oximetry 96 04/26/25 15:58 Oxygen Delivery Room Air 04/26/25 15:58 Temperature 97.9 F 04/26/25 15:58 Pulse Rate 93 04/26/25 18:46 Respiratory Rate 20 04/26/25 18:46 Blood Pressure 176/107 H 04/26/25 18:46 Pulse Oximetry 96 04/26/25 18:46 Oxygen Delivery Room Air 04/26/25 17:50 MDM Differential Diagnosis Differential Diagnosis: Anxiety, sleep apnea, hypercapnia Lab Data [facility] Lab Attestation statement: I personally reviewed the patient's lab results. 04/26/25 17:51 04/26/25 17:51 Labs: Lab Results 04/26/25 Range/Units 17:51 WBC 5.7 (4.5-10.0) K/mm3 RBC 4.89 (4.6-6.20) M/mm3 Hgb 14.3 (14.0-18.0) g/dL Hct 43.4 (42.0-52.0) % MCV 88.8 (80-100) fl MCH 29.2 (26-34) pg MCHC 32.9 (32-36) g/dl RDW 14.8 H (11.5-14.5) % Plt Count 194 (150-375) k/mm3 MPV 9.8 (7.4-10.4) fl Immature Gran % (Auto) 0.2 (0-0.5) % Neut % (Auto) 63.6 (45.5-73.1) % Lymph % (Auto) 27.7 (18.3-44.2) % [place] % (Auto) 6.6 (2.6-8.5) % Eos % (Auto) 1.6 (0-4.4) % Baso % (Auto) 0.3 (0.2-1.2) % Lymph # (Auto) 1.59 (0.9-3.2) K/mm3 [place] # (Auto) 0.4 (0.1-0.6) K/mm3 Eos # (Auto) 0.1 (0-0.3) K/mm3 Baso # (Auto) 0.0 (0.0-0.1) K/mm3 Abs Immat Gran (auto) 0.01 (0.00-0.031) K/mm3 Absolute Neuts (auto) 3.6 (1.3-6.7) K/mm3 Absolute Nucleated RBC 0.000 (0.0-0.012) K/mm3 Nucleated RBC % 0.0 (0.0-0.2) % Sodium 139 (137-145) mmol/L Potassium 3.4 (3.4-5.0) mmol/L Chloride 105 (98-107) mmol/L Carbon Dioxide 27 (22-30) mmol/L Anion Gap 7 (4-12) mmol/L BUN 18 (9-20) mg/dL Creatinine 0.71 (0.7-1.3) mg/dL Estim Creat Clear Calc 142 ml/min Estimated GFR > 60 (59 - ) Glucose 107 (65-110) mg/dL Calcium 8.6 (8.4-10.2) mg/dL Magnesium 1.6 (1.6-2.3) mg/dL Total Bilirubin 1.7 H (0.2-1.3) mg/dL AST 51 (17-59) U/L ALT 47 (6-50) U/L Alkaline Phosphatase 69 (38-126) U/L Total Protein 6.8 (6.3-8.2) g/dL Albumin 4.1 (3.5-5.1) g/dL Imaging Data Radiologist's impression: ITS Impressions Chest X-Ray 04/26/25 18:04 IMPRESSION: 1. No acute findings. Cardiomegaly, atherosclerotic aorta and evidence of pulmonary arterial hypertension. Discharge Plan Discharge Clinical Impression: Anxiety, Insomnia Patient Disposition: Home Condition: Stable Instructions: Insomnia (ED), Anxiety (ED) Additional Instructions: Follow-up with your sleep medicine doctor. You may try Ativan prior to going to bed but do not mix it with your Ambien. Return to the ER if you have any additional concerns. Patient Language: Italian Prescriptions: New lorazepam [Ativan] 0.5 mg tablet 0.5 mg PO HS PRN (Reason: anxiety) Qty: 7 0RF No Action montelukast 10 mg tablet 10 mg PO HS Qty: 90 2RF zolpidem 10 mg tablet 10 mg PO HS Qty: 30 0RF buspirone 15 mg tablet 15 mg PO BID Qty: 180 1RF albuterol sulfate [Ventolin HFA] 90 mcg/actuation HFA aerosol inhaler 2 inh INHALATION Q4H PRN (Reason: shortness of breath or wheezing) Qty: 6.7 4RF triamterene-hydrochlorothiazid 37.5-25 mg capsule 1 cap PO QAM Qty: 90 2RF losartan 100 mg tablet 100 mg PO QAM Qty: 90 0RF omeprazole 40 mg capsule,delayed release(DR/EC) 40 mg PO DAILY 42 Days Qty: 90 1RF Rx Instructions: first thing in AM on empty stomach cholecalciferol (vitamin D3) 1,250 mcg (50,000 unit) capsule 1,250 mcg PO WEEKLY Qty: 8 0RF Follow-up/Referrals: Santosh Villagran MD [Primary Care Provider, Family Practice] - 1 Week
[2025-04-26 17:50] VITALS: BP 176/107; PULSE 81; PULSE 84; RESP 22; O2SAT 96
[2025-04-26 17:56] LABS: Hematocrit 43.4 % (42.0-52.0); Hemoglobin 14.3 g/dL (14.0-18.0); Immature Granulocyte Percent A 0.2 % (0-0.5); Lymphocytes Absolute Auto 1.59 K/mm3 (0.9-3.2); Mean Corpuscular HGB Conc 32.9 g/dl (32-36); Mean Corpuscular Hemoglobin 29.2 pg (26-34); Mean Corpuscular Volume 88.8 fl (80-100); Nucleated Red Blood Cells Absolute Auto 0.000 K/mm3 (0.0-0.012); Nucleated Red Blood Cells Perc 0.0 % (0.0-0.2); Platelet Count Result 194 k/mm3 (150-375); Red Blood Count 4.89 M/mm3 (4.6-6.20); White Blood Count 5.7 K/mm3 (4.5-10.0)
[2025-04-26 18:20] LABS: Alanine Aminotransferase 47 U/L (6-50); Albumin Level 4.1 g/dL (3.5-5.1); Alkaline Phosphatase 69 U/L (38-126); Anion Gap 7 mmol/L (4-12); Aspartate Amino Transferase 51 U/L (17-59); Bilirubin,Total 1.7 mg/dL (0.2-1.3); Blood Urea Nitrogen 18 mg/dL (9-20); Calcium 8.6 mg/dL (8.4-10.2); Carbon Dioxide 27 mmol/L (22-30); Chloride 105 mmol/L (98-107); Estimated CRCL calculation 142 ml/min; Estimated Glomerular Filt Rate > 60; Glucose 107 mg/dL (65-110); Magnesium 1.6 mg/dL (1.6-2.3); Potassium 3.4 mmol/L (3.4-5.0); Sodium 139 mmol/L (137-145); Total Protein 6.8 g/dL (6.3-8.2)
[2025-04-26 18:46] VITALS: BP 176/107; PULSE 93; RESP 20; O2SAT 96
[2025-04-26 19:32] VITALS: BP 142/92; PULSE 77; RESP 18; TEMP 36.6; O2SAT 96
== END 2025-04-26 19:35 | disposition home or self-care (01) ==
PROVIDERS: Emergency Provider Emergency Medicine; PCP Family Medicine
DX: F41.9 Anxiety disorder, unspecified (principal); G47.00 Insomnia, unspecified; R06.02 Shortness of breath; G47.33 Obstructive sleep apnea (adult) (pediatric)
CPT/HCPCS: 36415; 71046; 80053; 83735; 85025; 93005; 99284